=== PATIENT | male | born 1950 | race Caucasian/White ===

== ENCOUNTER 2019-02-12 21:56 | Emergency (ER) | payer OTHER ==
[~2019-02-12] VITALS: Ht 185.4 cm; Wt 83.9 kg
[~2019-02-12 21:56] MED LIST: NOHOMEMEDICATIONS; ONDANSETRON HCL4 M2 PO
[2019-02-12 22:18] LABS: URINE BILIRUBIN NEGATIVE (Negative); URINE BLOOD NEGATIVE (Negative); URINE CLARITY CLEAR; URINE COLOR YELLOW; URINE GLUCOSE-RANDOM NEGATIVE (Negative); URINE KETONES NEGATIVE (Negative); URINE LEUKOCYTES-REFLEX NEGATIVE (Negative); URINE NITRITE-REFLEX NEGATIVE (Negative); URINE PROTEIN NEGATIVE (Negative); URINE SPECIFIC GRAVITY >= 1.030 (1.005-1.030); URINE UROBILINOGEN 0.2 E.U./dl (0.2-1.0)
[2019-02-12 22:22] LABS: ABSOLUTE BASOPHILS 0.1 thou/uL (0.0-0.2); ABSOLUTE EOSINOPHILS 0.3 thou/uL (0.0-0.7); ABSOLUTE LYMPHOCYTES 2.5 thou/uL (0.8-5.3); ABSOLUTE MONOCYTES 0.6 thou/uL (0.0-1.2); ABSOLUTE NEUTROPHILS 4.3 thou/uL (1.6-8.1); BASOPHILS 0.8 %; EOSINOPHILS 3.8 %; HEMATOCRIT 39.7 % (42.0-52.0); HEMOGLOBIN 13.4 gm/dL (14.0-18.0); LYMPHOCYTES 32.3 %; MCH 29.7 pg (26.0-34.0); MCHC 33.7 g/dL (28.0-37.0); MCV 88.2 fL (80.0-100.0); MONOCYTES 7.8 %; MPV 8.4 fl. (7.2-11.1); NUCLEATED RBCS 0 /100WBC; PLATELET COUNT* 242 thou/uL (150-400); POLYS 55.3 %; RDW-CV 14.5 % (10.5-14.5); WBC 7.8 thou/uL (4.0-11.0)
[2019-02-12 22:26] LABS: CALCIUM 9.3 mg/dL (8.5-10.1); CREATININE 1.1 mg/dL (0.6-1.3); POTASSIUM 4.3 mmol/L (3.5-5.1)
[2019-02-12 22:31] LABS: PROTIME 10.3 Seconds (9.20-11.50)
[2019-02-12 22:38] LABS: ALBUMIN 3.6 g/dL (3.4-5.0); TOTAL BILIRUBIN 0.2 mg/dL (<0.1-1.0); TOTAL PROTEIN 6.9 g/dL (6.4-8.2)
[2019-02-13 00:28] VITALS: BP 153/73
--- NOTE | 2019-02-13 10:58 | EKG ---
[place] [address] ELECTROCARDIOGRAM REPORT Name: SUZY ARCHER Room: [facility]#: [id number] Admission: 02/12/19 Attend Phys: Discharge: 02/13/19 Date of : 46 Report #: [id number] THIS REPORT FOR: //name// [facility] ED Test Date: 2019-02-12 Test Time: 22:14:52 Pat Name: SUZY ARCHER Department: Room: Gender: M [employer] Instructor: : [id number] Requested By: Jessica Red Order Number: [id number] MD: Umesh Marino Measurements Intervals [place] Rate: 61 P: 17 NE: 192 QRS: -14 QRSD: 94 T: 21 QT: 440 QTc: 444 Interpretive Statements Sinus rhythm Probable septal infarct, old Compared to ECG 05/27/2009 08:19:05 Myocardial infarct finding now present T-wave abnormality no longer present Electronically Signed On 02-13-2019 10:58:11 [employer] by Umesh Marino [email or web address] <ELECTRONICALLY SIGNED> By: Umesh Marino MD, [facility] 02/13/19 1058 13 Umesh Marino MD, [facility] /EPI
== END 2019-02-13 00:28 | disposition home or self-care (01) ==
LOC: M.ERS 21:56
PROVIDERS: Emergency Medicine
DX: R47.81 Slurred speech (principal); Z86.73 Personal history of transient ischemic attack (TIA), and cerebral infarction without residual deficits; Z88.8 Allergy status to other drugs, medicaments and biological substances